=== PATIENT | female | born 1975 | race Caucasian/White ===

== ENCOUNTER 2024-07-20 09:03 | Emergency (ER) | payer MEDICAID ==
[~2024-07-20] VITALS: Ht 165.1 cm; Wt 77.0 kg
[2024-07-20 09:13] VITALS: TEMP 98.5; O2SAT 99
[2024-07-20 09:14] VITALS: O2SAT 100
[2024-07-20 11:02] LABS: BASOPHILS % 0.3 % (0.0-2.0); EOSINOPHILS % 1.2 % (0.0-5.0); HEMATOCRIT. 40.4 % (36.0-48.0); HEMOGLOBIN. 13.8 g/dL (12.0-16.0); LYMPHOCYTES % 26.8 % (20.0-50.0); MEAN CORPUSCULAR HGB CONC 34.1 g/dL (31.0-37.0); MEAN CORPUSCULAR VOLUME 93.7 fL (81.0-99.0); MONOCYTES % 6.7 % (2.0-8.0); PLATELET 368 x1000/uL (130-400); RED BLOOD CELL COUNT 4.31 mill/uL (4.2-5.4); RED CELL DISTRIBUTION WIDTH 12.5 % (11.6-14.6); WHITE BLOOD COUNT 7.9 x1000/uL (4.5-11.0)
[2024-07-20 11:27] LABS: CHLORIDE 107 mEq/L (98-107); POTASSIUM 4.2 mEq/L (3.5-5.1); SODIUM 142 mEq/L (136-145)
[2024-07-20 11:29] LABS: CARBON DIOXIDE 25 mEq/L (21-32)
[2024-07-20 11:30] LABS: CALCIUM 9.9 mg/dL (8.7-10.4)
[2024-07-20 11:30] LABS: CLARITY URINE CLEAR (CLEAR); COLOR URINE YELLOW (YELLOW); GLUCOSE URINE NEGATIVE (NEGATIVE); KETONES URINE NEGATIVE (NEGATIVE); LEUKOCYTE ESTERASE URINE NEGATIVE (NEGATIVE); NITRITE URINE NEGATIVE (NEGATIVE); OCCULT BLOOD URINE NEGATIVE (NEGATIVE); PROTEIN URINE NEGATIVE (NEGATIVE); SPECIFIC GRAVITY URINE 1.011 (1.005-1.030); UROBILINOGEN URINE 0.2 E.U./dL (0.2-1.0)
[2024-07-20 11:34] LABS: CREATININE 0.8 mg/dL (0.6-1.0)
[2024-07-20 11:35] LABS: GLUCOSE 93 mg/dL (70-105); UREA NITROGEN BLOOD 12 mg/dL (9-23)
[2024-07-20 11:36] LABS: ALANINE AMINOTRANSFERASE 34 IU/L (10-49); ALBUMIN 4.8 g/dL (3.2-4.8); ASPARTATE AMINOTRANSFERASE 29 IU/L (<34)
[2024-07-20 11:37] LABS: BILIRUBIN DIRECT 0.2 mg/dL (<=3.0); BILIRUBIN TOTAL 0.8 mg/dL (0.1-1.0); PROTEIN TOTAL 8.1 g/dL (6.0-8.3)
[2024-07-20 11:42] LABS: TROPONIN I HIGH SENSITIVITY < 4 ng/L (3.0-34)
[2024-07-20] MEDS ORDERED: FAMO-135 MT (12:48)
[2024-07-20 13:11] VITALS: BP 166/99; PULSE 98; RESP 16
[2024-07-20] MEDS: KETOROLAC 30MG/ML VIAL IM ONE (13:11)
== END 2024-07-20 13:13 | disposition home or self-care (01) ==
LOC: ER 09:22
DX: K76.0 Fatty (change of) liver, not elsewhere classified (principal); I10 Essential (primary) hypertension
CPT/HCPCS: 99285; 76705; 80076; 80048; 81003; 81025; 83690; 85025; 84484; 36415; 93005; 96372; J1885